=== PATIENT | female | born 1995 | race Caucasian/White ===

== ENCOUNTER 2019-01-01 11:16 | Emergency (ER) | payer MEDICAID ==
[2019-01-01 11:44] LABS: #Basophils 0.1 thou/uL (0.0-0.2); #Eosinphils 0.1 thou/uL (0.0-0.7); #Lymphocytes 2.5 thou/uL (1.20-3.40); #Monocytes 0.7 thou/uL (0.11-0.59); #Neutrophils 7.6 thou/uL (1.40-6.50); %Basophils 0.5 % (0.0-1.0); %Eosinophils 0.7 % (0.0-10.0); %Lymphocytes 22.6 % (21.0-51.0); %Monocytes 6.6 % (0.0-10.0); %Neutrophils 69.5 % (42.0-75.0); Hemoglobin 14.1 g/dL (12.0-16.0); Mean Corpuscular HGB CONC 33.8 g/dL (32.0-36.0); Mean Corpuscular Hemoglobin 29.9 pg (27.0-31.0); Mean Corpuscular Volume 88.6 fL (78.0-98.0); Platelet Count 254 thou/uL (130-400); RBC Distribution Width 12.7 % (11.5-14.5); Red Blood Cell (RBC) Count 4.72 mill/uL (4.20-5.40); White Blood Cell (WBC) Count 10.9 thou/uL (4.8-10.8)
[2019-01-01 12:05] LABS: Pregnancy Test - Urine (BHCG) Negative (Negative); Pregu Control Background? CLEAR/WHITE (CLR/WHITE); Pregu Control Bar Appear? YES (CONTROL BAR); Specific Gravity 1.021 (1.002-1.036)
[2019-01-01 12:14] LABS: ALT (SGPT) 21 U/L (8-55); AST (SGOT) 12 U/L (5-34); Albumin 4.2 g/dL (3.5-5.0); Alkaline Phosphatase 103 U/L (40-150); Anion Gap 15 mmol/L (10-20); BUN (Urea Nitrogen) 8 mg/dL (7.0-18.7); Bilirubin, Total 0.3 mg/dL (0.2-1.2); Calc. Creatinine Clearance 0 mL/min (70-130); Calcium 9.3 mg/dL (7.8-10.44); Carbon Dioxide 22 mmol/L (22-29); Chloride 105 mmol/L (98-107); Estimated GFR-MDRD Greater than 90; Globulin 2.6 g/dL (2.4-3.5); Glucose 96 mg/dL (70-105); Lipase 13 U/L (8-78); Protein, Total 6.8 g/dL (6.0-8.3); Sodium 138 mmol/L (136-145)
[2019-01-01 12:28] LABS: Bilirubin Negative (Negative); Blood, Urine Negative (Negative); Clarity CLOUDY (Clear); Glucose, Urine (Dipstick) Negative (Negative); Leukocyte Negative (Negative); Nitrite Negative (Negative); Protein, Urine (Dipstick) Negative (Neg-Trace); Specific Gravity, Urine 1.022 (1.002-1.036)
[2019-01-01] MEDS ORDERED: Ketorolac Tromethamine 30 MG/ML VIAL ONE (13:01)
--- NOTE | 2019-01-01 13:56 | CT ---
CT ABDOMEN AND PELVIS WITHOUT CONTRAST: HISTORY: Abdominal pain, nausea and vomiting. FINDINGS: Absence of oral and IV contrast reduces the sensitivity of the exam, particularly for evaluation of s olid organs involved. The lung bases are clear. No free air or free fluid is seen in the abdomen or pelvis. No calcified gallstones are seen. No calculi are noted in the kidneys, ureters, or the urinary bladder. No hydro ureteral nephrosis is identified on either side. A normal-appearing appendix is noted. Uterus and o varies are present. No acute osseous abnormalities are identified. IMPRESSION: No CT evidence of urinary tract calculi/obstruction or appendicitis. POS: [facility]
== END 2019-01-01 14:36 | disposition home or self-care (01) ==
LOC: ERS 11:16
DX: R10.30 Lower abdominal pain, unspecified (principal); R10.811 Right upper quadrant abdominal tenderness; F41.9 Anxiety disorder, unspecified; F17.210 Nicotine dependence, cigarettes, uncomplicated; Z79.899 Other long term (current) drug therapy
CPT/HCPCS: 36415; 74176; 80053; 81003; 81025; 83690; 85025; 96361; 96374; J1885

== ENCOUNTER 2019-02-19 13:27 | Emergency (ER) | payer OTHER ==
[2019-02-19 13:53] LABS: Bilirubin Negative (Negative); Blood, Urine Negative (Negative); Clarity Clear (Clear); Glucose, Urine (Dipstick) Normal (Negative); Leukocyte Negative Leu/uL (Negative); Nitrite Negative (Negative); Protein, Urine (Dipstick) 10 mg/dL (Neg-Trace); Urobilinogen Normal mg/dL (Less than 2)
[2019-02-19 13:55] LABS: Pregnancy Test - Urine (BHCG) Negative (Negative); Pregu Control Background? CLEAR/WHITE (CLR/WHITE); Pregu Control Bar Appear? YES (CONTROL BAR); Specific Gravity 1.025 (1.002-1.036)
[2019-02-19 14:03] LABS: #Eosinphils 0.2 thou/uL (0.0-0.7); #Lymphocytes 2.1 thou/uL (1.20-3.40); #Monocytes 0.6 thou/uL (0.11-0.59); #Neutrophils 6.1 thou/uL (1.40-6.50); %Basophils 0.5 % (0.0-1.0); %Eosinophils 1.8 % (0.0-10.0); %Lymphocytes 23.1 % (21.0-51.0); %Neutrophils 67.6 % (42.0-75.0); Hemoglobin 13.8 g/dL (12.0-16.0); Mean Corpuscular Hemoglobin 30.1 pg (27.0-31.0); Mean Corpuscular Volume 88.7 fL (78.0-98.0); Platelet Count 228 thou/uL (130-400); RBC Distribution Width 12.5 % (11.5-14.5); Red Blood Cell (RBC) Count 4.58 mill/uL (4.20-5.40)
[2019-02-19 14:25] LABS: ALT (SGPT) 31 U/L (8-55); AST (SGOT) 17 U/L (5-34); Albumin 3.9 g/dL (3.5-5.0); Alkaline Phosphatase 90 U/L (40-150); Anion Gap 11 mmol/L (10-20); BUN (Urea Nitrogen) 9 mg/dL (7.0-18.7); Bilirubin, Total 0.4 mg/dL (0.2-1.2); Calc. Creatinine Clearance 0 mL/min (70-130); Calcium 9.6 mg/dL (7.8-10.44); Carbon Dioxide 24 mmol/L (22-29); Chloride 105 mmol/L (98-107); Estimated GFR-MDRD Greater than 90; Globulin 2.9 g/dL (2.4-3.5); Glucose 128 mg/dL (70-105); Lipase 10 U/L (8-78); Potassium 3.7 mmol/L (3.5-5.1); Protein, Total 6.8 g/dL (6.0-8.3); Sodium 136 mmol/L (136-145)
[2019-02-19] MEDS ORDERED: Acetaminophen 500 MG TAB ONE (14:39)
== END 2019-02-19 15:20 | disposition home or self-care (01) ==
LOC: ERS 13:27
DX: R10.9 Unspecified abdominal pain (principal); R11.2 Nausea with vomiting, unspecified; N93.9 Abnormal uterine and vaginal bleeding, unspecified; J02.9 Acute pharyngitis, unspecified; F41.0 Panic disorder [episodic paroxysmal anxiety]; F17.210 Nicotine dependence, cigarettes, uncomplicated; Z79.899 Other long term (current) drug therapy
CPT/HCPCS: 36415; 80053; 81003; 81025; 83690; 84702; 85025; 86900; 86901; 99284

== ENCOUNTER 2019-03-01 21:08 | Emergency (ER) | payer OTHER ==
[2019-03-01 22:07] LABS: BHCG - Serum Negative (NEGATIVE); Pregs Control Background? CLEAR/WHITE (CLR/WHITE); Pregs Control Bar Appear? YES (CONTROL BAR)
--- NOTE | 2019-03-01 22:13 | RAD ---
XR Knee Rt 4 View STANDARD HISTORY: Knee injury COMPARISON: None. FINDINGS: There are no signs of fracture, dislocation or joint effusion. IMPRESSION: No evidence of fracture.
[2019-03-01] MEDS ORDERED: Acetaminophen 500 MG TAB ONE (22:24)
== END 2019-03-01 22:42 | disposition home or self-care (01) ==
LOC: ERS 21:08
DX: S81.811A Laceration without foreign body, right lower leg, initial encounter (principal); M54.5 Low back pain; F41.0 Panic disorder [episodic paroxysmal anxiety]; Z79.899 Other long term (current) drug therapy; W19.XXXA Unspecified fall, initial encounter
CPT/HCPCS: 36415; 84703

== ENCOUNTER 2019-03-07 21:51 | Emergency (ER) | payer OTHER ==
[2019-03-07 22:36] LABS: #Eosinphils 0.1 thou/uL (0.0-0.7); #Lymphocytes 2.7 thou/uL (1.20-3.40); #Monocytes 0.9 thou/uL (0.11-0.59); #Neutrophils 6.4 thou/uL (1.40-6.50); %Basophils 0.2 % (0.0-1.0); %Eosinophils 0.8 % (0.0-10.0); %Lymphocytes 26.8 % (21.0-51.0); %Neutrophils 63.2 % (42.0-75.0); Hemoglobin 13.7 g/dL (12.0-16.0); Mean Corpuscular HGB CONC 34.5 g/dL (32.0-36.0); Mean Corpuscular Hemoglobin 30.8 pg (27.0-31.0); Mean Corpuscular Volume 89.3 fL (78.0-98.0); Platelet Count 260 thou/uL (130-400); RBC Distribution Width 12.1 % (11.5-14.5); Red Blood Cell (RBC) Count 4.43 mill/uL (4.20-5.40); White Blood Cell (WBC) Count 10.1 thou/uL (4.8-10.8)
[2019-03-07 22:46] LABS: BHCG - Serum Negative (NEGATIVE); Pregs Control Background? CLEAR/WHITE (CLR/WHITE); Pregs Control Bar Appear? YES (CONTROL BAR)
[2019-03-07 22:59] LABS: ALT (SGPT) 30 U/L (8-55); AST (SGOT) 16 U/L (5-34); Albumin 4.2 g/dL (3.5-5.0); Alkaline Phosphatase 104 U/L (40-150); Anion Gap 13 mmol/L (10-20); BUN (Urea Nitrogen) 8 mg/dL (7.0-18.7); Bilirubin, Total 0.2 mg/dL (0.2-1.2); Calc. Creatinine Clearance 0 mL/min (70-130); Calcium 9.3 mg/dL (7.8-10.44); Carbon Dioxide 22 mmol/L (22-29); Chloride 106 mmol/L (98-107); Estimated GFR-MDRD Greater than 90; Glucose 98 mg/dL (70-105); Lipase 14 U/L (8-78); Potassium 4.2 mmol/L (3.5-5.1); Protein, Total 7.2 g/dL (6.0-8.3); Sodium 137 mmol/L (136-145)
== END 2019-03-07 23:44 | disposition left against medical advice (07) ==
LOC: ERS 21:51
DX: Z53.21 Procedure and treatment not carried out due to patient leaving prior to being seen by health care provider (principal)
CPT/HCPCS: 36415; 80053; 83605; 83690; 84703; 85025

== ENCOUNTER 2019-03-28 19:53 | Emergency (ER) | payer OTHER | END 2019-03-28 20:41 | disposition left against medical advice (07) | LOC: ERS 19:53 | DX: Z53.21 Procedure and treatment not carried out due to patient leaving prior to being seen by health care provider (principal) ==

== ENCOUNTER 2019-08-05 09:58 | Outpatient (CLI) | payer OTHER ==
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
== END 2019-08-05 09:59 | disposition home or self-care (01) ==
LOC: TBSIIMAG 09:58
PROVIDERS: ATTEND Family Medicine
DX: S32.009K Unspecified fracture of unspecified lumbar vertebra, subsequent encounter for fracture with nonunion (principal); M48.07 Spinal stenosis, lumbosacral region
CPT/HCPCS: 72148

== ENCOUNTER 2019-09-07 04:08 | Emergency (ER) | payer OTHER ==
[2019-09-07] MEDS ORDERED: Ondansetron PF 4 MG/2 ML Vial ONE (04:19)
[2019-09-07 04:29] LABS: Bilirubin Negative (Negative); Blood, Urine Negative (Negative); Clarity Clear (Clear); Glucose, Urine (Dipstick) Normal (Negative); Leukocyte Negative Leu/uL (Negative); Nitrite Negative (Negative); Protein, Urine (Dipstick) Negative (Neg-Trace); Urobilinogen Normal mg/dL (Less than 2)
[2019-09-07 04:31] LABS: Pregnancy Test - Urine (BHCG) Negative (Negative); Pregu Control Background? CLEAR/WHITE (CLR/WHITE); Pregu Control Bar Appear? YES (CONTROL BAR); Specific Gravity 1.018 (1.002-1.036)
[2019-09-07] MEDS ORDERED: Metoclopramide HCl 10 MG/2 ML VIAL ONE (04:35)
[2019-09-07] MEDS ORDERED: diphenhydrAMINE 50 MG/ML VIAL ONE (04:35)
[2019-09-07] MEDS ORDERED: Acetaminophen 500 MG TAB ONE (04:35)
[2019-09-07 04:45] LABS: #Basophils 0.1 thou/uL (0.0-0.2); #Eosinphils 0.1 thou/uL (0.0-0.7); #Lymphocytes 3.8 thou/uL (1.20-3.40); #Monocytes 0.9 thou/uL (0.11-0.59); #Neutrophils 6.8 thou/uL (1.40-6.50); %Basophils 0.7 % (0.0-1.0); %Eosinophils 1.1 % (0.0-10.0); %Lymphocytes 32.6 % (21.0-51.0); %Monocytes 7.7 % (0.0-10.0); %Neutrophils 57.9 % (42.0-75.0); Hemoglobin 13.6 g/dL (12.0-16.0); Mean Corpuscular HGB CONC 34.1 g/dL (32.0-36.0); Mean Corpuscular Hemoglobin 29.9 pg (27.0-31.0); Mean Corpuscular Volume 87.8 fL (78.0-98.0); Mean Platelet Volume 7.2 fL (7.4-10.4); Platelet Count 257 thou/uL (130-400); RBC Distribution Width 12.3 % (11.5-14.5); Red Blood Cell (RBC) Count 4.53 mill/uL (4.20-5.40); White Blood Cell (WBC) Count 11.7 thou/uL (4.8-10.8)
[2019-09-07 05:05] LABS: ALT (SGPT) 22 U/L (8-55); AST (SGOT) 12 U/L (5-34); Albumin 4.2 g/dL (3.5-5.0); Alkaline Phosphatase 106 U/L (40-110); Anion Gap 11 mmol/L (10-20); BUN (Urea Nitrogen) 12 mg/dL (7.0-18.7); Bilirubin, Total 0.3 mg/dL (0.2-1.2); Calc. Creatinine Clearance 0 mL/min (70-130); Calcium 9.1 mg/dL (7.8-10.44); Carbon Dioxide 27 mmol/L (22-29); Chloride 105 mmol/L (98-107); Estimated GFR-MDRD Greater than 90; Globulin 3.1 g/dL (2.4-3.5); Glucose 103 mg/dL (70-105); Lipase 15 U/L (8-78); Potassium 4.1 mmol/L (3.5-5.1); Protein, Total 7.3 g/dL (6.0-8.3); Sodium 139 mmol/L (136-145)
== END 2019-09-07 05:26 | disposition home or self-care (01) ==
LOC: ERS 04:08
DX: R11.2 Nausea with vomiting, unspecified (principal); E66.9 Obesity, unspecified
CPT/HCPCS: 80053; 81003; 81025; 83690; 85025; 96361; 96374; 96375; J1200; J2405; J2765

== ENCOUNTER 2020-02-15 00:54 | Emergency (ER) | payer OTHER, SELFPAY | END 2020-02-15 01:15 | disposition short-term general hospital (02) | LOC: ERS 00:54 | DX: O21.9 Vomiting of pregnancy, unspecified (principal); O99.352 Diseases of the nervous system complicating pregnancy, second trimester; G40.909 Epilepsy, unspecified, not intractable, without status epilepticus; Z79.899 Other long term (current) drug therapy; Z3A.20 20 weeks gestation of pregnancy | CPT/HCPCS: 99284 ==

== ENCOUNTER 2020-02-15 01:33 | Day surgery (SDC) | payer OTHER ==
[2020-02-15 01:55] VITALS: BP 144/73; TEMP 98.7; BMI 41.8
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
== END 2020-02-15 02:35 | disposition home or self-care (01) ==
LOC: L&D/OP 01:33
PROVIDERS: ATTEND Student in an Organized Health Care Education/Training Program
DX: O46.93 Antepartum hemorrhage, unspecified, third trimester (principal); O99.89 Other specified diseases and conditions complicating pregnancy, childbirth and the puerperium; R56.9 Unspecified convulsions; O30.102 Triplet pregnancy, unspecified number of placenta and unspecified number of amniotic sacs, second trimester; O09.292 Supervision of pregnancy with other poor reproductive or obstetric history, second trimester; Z3A.20 20 weeks gestation of pregnancy; Z79.899 Other long term (current) drug therapy; Z88.8 Allergy status to other drugs, medicaments and biological substances; V40.5XXA Car driver injured in collision with pedestrian or animal in traffic accident, initial encounter
CPT/HCPCS: 76815; 99281

== ENCOUNTER 2020-05-21 12:26 | Outpatient (CLI) | payer OTHER ==
--- NOTE | 2020-05-21 14:00 | RAD ---
LUMBAR SPINE SERIES 3 VIEWS WITH FLEXION AND EXTENSION: Date: 05/21/2020 HISTORY: Back pain. FINDINGS: Vertebral bodies maintain normal height. Disc spaces are well preserved. No abnormal motion on the fl exion or extension views. No spondylolisthesis. IMPRESSION: Unremarkable lumbar spine series. POS: [facility]
== END 2020-05-21 12:27 | disposition home or self-care (01) ==
LOC: TBSIIMAG 12:26
PROVIDERS: ATTEND Nurse Practitioner Family
DX: M47.816 Spondylosis without myelopathy or radiculopathy, lumbar region (principal)
CPT/HCPCS: 72100

== ENCOUNTER 2020-05-31 07:58 | Outpatient (CLI) | payer OTHER ==
[2020-05-31 22:58] LABS: SARS-CoV-2 MS2 Positive; SARS-CoV-2 N Gene Negative; SARS-CoV-2 S Gene Negative; SARS-CoV-2 by NAA Not Detected (NotDetected); SARS-CoV-2 orf1ab Negative
== END 2020-05-31 07:59 | disposition home or self-care (01) ==
LOC: LABBT 07:58
PROVIDERS: ATTEND Psychiatry & Neurology Neurology
DX: Z01.812 Encounter for preprocedural laboratory examination (principal); S32.009K Unspecified fracture of unspecified lumbar vertebra, subsequent encounter for fracture with nonunion; Z20.828 Contact with and (suspected) exposure to other viral communicable diseases
CPT/HCPCS: 87635; U0003

== ENCOUNTER 2020-06-02 20:36 | Emergency (ER) | payer OTHER ==
--- NOTE | 2020-06-02 21:52 | CT ---
EXAM: CT brain without contrast HISTORY: Seizure. History of brain mass COMPARISON: None TECHNIQUE: Multiple contiguous axial images were obtained and a CT of the brain without contrast. FINDINGS: The brain is normal in morphology and attenuation without focal lesions or confluent areas of infarction. There is no evidence of hydrocephalus, intracranial hemorrhage, or extra-axial fluid collection. No obvious mass is seen on this limited noncontrast examination. The calvarium and overlying soft tissues are unremarkable. The visualized paranasal sinuses and masto id air cells are well aerated. IMPRESSION: No evidence of acute intracranial abnormality. No obvious brain mass visualized on this l imited noncontrast examination. If concern about a brain mass, then an MRI of the brain without and with contrast should be performed.
[2020-06-02 21:54] LABS: Pregnancy Test - Urine (BHCG) Negative (Negative); Pregu Control Background? CLEAR/WHITE (CLR/WHITE); Pregu Control Bar Appear? YES (CONTROL BAR); Specific Gravity 1.029 (1.002-1.036)
[2020-06-02] MEDS ORDERED: levETIRAcetam 500 MG TAB PO SCH (22:15)
== END 2020-06-02 23:30 | disposition home or self-care (01) ==
LOC: ERS 20:36
DX: G40.909 Epilepsy, unspecified, not intractable, without status epilepticus (principal); F31.9 Bipolar disorder, unspecified; F20.9 Schizophrenia, unspecified; Z79.899 Other long term (current) drug therapy; Z85.841 Personal history of malignant neoplasm of brain
CPT/HCPCS: 36416; 70450; 81025; 93005

== ENCOUNTER 2020-06-04 12:04 | Day surgery (SDC) | payer OTHER ==
[2020-06-01 10:11] VITALS: BMI 37.1
== END 2020-06-04 12:20 | disposition home or self-care (01) ==
LOC: SDC/OP 12:04
PROVIDERS: ATTEND Psychiatry & Neurology Neurology
DX: G40.209 Localization-related (focal) (partial) symptomatic epilepsy and epileptic syndromes with complex partial seizures, not intractable, without status epilepticus (principal); S32.009K Unspecified fracture of unspecified lumbar vertebra, subsequent encounter for fracture with nonunion; Z79.899 Other long term (current) drug therapy; Z88.4 Allergy status to anesthetic agent; Z88.8 Allergy status to other drugs, medicaments and biological substances; Z91.013 Allergy to seafood

== ENCOUNTER 2020-07-06 22:05 | Emergency (ER) | payer OTHER ==
[2020-07-06 22:55] LABS: Pregnancy Test - Urine (BHCG) POSITIVE (Negative); Pregu Control Background? CLEAR/WHITE (CLR/WHITE); Pregu Control Bar Appear? YES (CONTROL BAR); Specific Gravity 1.021 (1.002-1.036)
[2020-07-06 22:56] LABS: Bilirubin Negative (Negative); Blood, Urine 2+ (Negative); Clarity Turbid (Clear); Glucose, Urine (Dipstick) Normal (Negative); Ketone, Urine Negative (Negative); Leukocyte 75 Leu/uL (Negative); Nitrite Negative (Negative); Protein, Urine (Dipstick) Negative (Neg-Trace); RBC/HPF 0-3 HPF (0-3); Specific Gravity, Urine 1.021 (1.002-1.036); Urobilinogen Normal mg/dL (Less than 2); WBC/HPF 0-3 HPF (0-3)
[2020-07-06 22:57] LABS: Bacteria/HPF Rare-Few HPF (None Seen)
[2020-07-06] MEDS ORDERED: Morphine 4 MG/ML VIAL ONE (23:18)
[2020-07-06 23:29] LABS: #Basophils 0.1 thou/uL (0.0-0.2); #Eosinphils 0.1 thou/uL (0.0-0.7); #Lymphocytes 2.8 thou/uL (1.20-3.40); #Monocytes 0.8 thou/uL (0.11-0.59); #Neutrophils 6.1 thou/uL (1.40-6.50); %Basophils 0.5 % (0.0-1.0); %Lymphocytes 28.7 % (21.0-51.0); %Neutrophils 61.9 % (42.0-75.0); Hemoglobin 13.2 g/dL (12.0-16.0); Mean Corpuscular HGB CONC 33.7 g/dL (32.0-36.0); Mean Corpuscular Hemoglobin 30.4 pg (27.0-31.0); Mean Corpuscular Volume 90.4 fL (78.0-98.0); Mean Platelet Volume 7.5 fL (7.4-10.4); Platelet Count 215 thou/uL (130-400); RBC Distribution Width 12.6 % (11.5-14.5); Red Blood Cell (RBC) Count 4.33 mill/uL (4.20-5.40); White Blood Cell (WBC) Count 9.8 thou/uL (4.8-10.8)
[2020-07-06 23:52] LABS: ALT (SGPT) 68 U/L (8-55); AST (SGOT) 32 U/L (5-34); Albumin 4.1 g/dL (3.5-5.0); Alkaline Phosphatase 83 U/L (40-110); Anion Gap 15 mmol/L (10-20); BUN (Urea Nitrogen) 10 mg/dL (7.0-18.7); Bilirubin, Total 0.2 mg/dL (0.2-1.2); Calc. Creatinine Clearance 0 mL/min (70-130); Carbon Dioxide 25 mmol/L (22-29); Chloride 103 mmol/L (98-107); Globulin 3.1 g/dL (2.4-3.5); Glucose 99 mg/dL (70-105); Lipase 21 U/L (8-78); Potassium 3.9 mmol/L (3.5-5.1); Protein, Total 7.2 g/dL (6.0-8.3); Sodium 139 mmol/L (136-145)
--- NOTE | 2020-07-07 00:17 | ULT ---
Exam: Pelvic ultrasound HISTORY: Pelvic pain and spotting. Quantitative beta hCG level of 217. COMPARISON: None TECHNIQUE: Multiple grayscale and color Doppler images were obtained in a transabdominal and transvag inal pelvic ultrasound. Spectral analysis of the Doppler waveforms of the ovaries were performed. FINDINGS: CERVIX: Unremarkable UTERUS: Normal in size without focal abnormality. ENDOMETRIAL STRIPE: 6 mm which is within normal limits for a normal menstruating female patient. No f luid or fluid collection is seen in the endometrial canal. No free fluid is present. RIGHT OVARY: Normal flow, without focal mass. LEFT OVARY: Normal flow, without focal mass. IMPRESSION: Normal-appearing uterus and bilateral ovaries. No fluid collection is seen in the endometrial canal t o suggest an intrauterine gestation. Ectopic cannot be excluded based on sonographic evaluation.
[2020-07-07] MEDS ORDERED: Morphine 4 MG/ML VIAL ONE (01:21)
== END 2020-07-07 01:27 | disposition home or self-care (01) ==
LOC: ERS 22:05
DX: O20.0 Threatened abortion (principal); Z3A.01 Less than 8 weeks gestation of pregnancy
CPT/HCPCS: 36415; 76856; 80053; 81003; 81015; 81025; 83690; 84702; 85025; 86900; 86901; 87086; 96374; 96376; J2270

== ENCOUNTER 2020-10-31 12:39 | Outpatient (CLI) | payer OTHER | END 2020-10-31 12:40 | disposition home or self-care (01) | LOC: BICRAD 12:39 | PROVIDERS: ATTEND Nurse Practitioner Family | DX: M54.6 Pain in thoracic spine (principal); M47.816 Spondylosis without myelopathy or radiculopathy, lumbar region | CPT/HCPCS: 72070; 72110 ==

== ENCOUNTER 2021-05-03 09:32 | Day surgery (SDC) | payer OTHER ==
[2021-05-02 12:47] VITALS: BMI 37.1
[2021-05-03] MEDS ORDERED: Magnevist 469MG/ML 20 ML VIAL ONE (09:51)
[2021-05-03 10:42] LABS: Pregnancy Test - Urine (BHCG) Negative (Negative); Pregu Control Background? CLEAR/WHITE (CLR/WHITE); Pregu Control Bar Appear? YES (CONTROL BAR); Specific Gravity 1.017 (1.002-1.036)
[2021-05-03] MEDS ORDERED: Fentanyl 100 MCG/2 ML VIAL ONE (12:04)
[2021-05-03] MEDS ORDERED: Midazolam HCl 2 mg/2 ml Vial ONE (12:05)
[2021-05-03] MEDS ORDERED: PROPOFOL 200 MG/20 ML VIAL ONE (12:15)
[2021-05-03] MEDS ORDERED: Ondansetron PF 4 MG/2 ML Vial ONE ×2 (12:15→13:22)
[2021-05-03] MEDS ORDERED: Lidocaine 1% PF 5 ML VIAL ONE (12:15)
[2021-05-03] MEDS ORDERED: Promethazine HCl 25 MG/ML VIAL ONE (13:22)
[2021-05-03] MEDS ORDERED: HYDROcodone/Acetaminophen 5/325 mg Tablet ONE (14:06)
== END 2021-05-03 14:30 | disposition home or self-care (01) ==
LOC: MRI 09:32
PROVIDERS: ATTEND Psychiatry & Neurology Neurology
DX: G40.209 Localization-related (focal) (partial) symptomatic epilepsy and epileptic syndromes with complex partial seizures, not intractable, without status epilepticus (principal); G43.701 Chronic migraine without aura, not intractable, with status migrainosus; E78.00 Pure hypercholesterolemia, unspecified; Z88.8 Allergy status to other drugs, medicaments and biological substances; Z91.013 Allergy to seafood
CPT/HCPCS: 70553; 81025; J2250; J2405; J2550; J3010

== ENCOUNTER 2021-06-09 13:42 | Emergency (ER) | payer OTHER ==
[2021-06-09 14:38] LABS: Bacteria/HPF 1+ HPF (None Seen); Bilirubin Negative (Negative); Blood, Urine Negative (Negative); Clarity Clear (Clear); Glucose, Urine (Dipstick) Normal (Negative); Ketone, Urine Negative (Negative); Leukocyte 250 Leu/uL (Negative); Nitrite Negative (Negative); Protein, Urine (Dipstick) Negative (Neg-Trace); RBC/HPF 0-3 HPF (0-3); Specific Gravity, Urine 1.013 (1.002-1.036); Urobilinogen Normal mg/dL (Less than 2); pH, Urine 7.5 (5.0-9.0)
[2021-06-09 14:40] LABS: Pregnancy Test - Urine (BHCG) Negative (Negative); Pregu Control Background? CLEAR/WHITE (CLR/WHITE); Pregu Control Bar Appear? YES (CONTROL BAR); Specific Gravity 1.013 (1.002-1.036)
[2021-06-09] MEDS ORDERED: Ketorolac Tromethamine 30 MG/ML VIAL ONE (14:49)
[2021-06-09] MEDS ORDERED: Ondansetron PF 4 MG/2 ML Vial ONE (14:49)
[2021-06-09 15:06] LABS: #Basophils 0.1 thou/uL (0.0-0.2); #Eosinphils 0.1 thou/uL (0.0-0.7); #Lymphocytes 2.4 thou/uL (1.20-3.40); #Monocytes 0.9 thou/uL (0.11-0.59); #Neutrophils 8.2 thou/uL (1.40-6.50); %Basophils 0.4 % (0.0-1.0); %Lymphocytes 20.5 % (21.0-51.0); %Monocytes 7.5 % (0.0-10.0); %Neutrophils 70.6 % (42.0-75.0); Mean Corpuscular HGB CONC 33.8 g/dL (32.0-36.0); Mean Corpuscular Hemoglobin 29.6 pg (27.0-31.0); Mean Corpuscular Volume 87.6 fL (78.0-98.0); Mean Platelet Volume 6.8 fL (7.4-10.4); Platelet Count 278 thou/uL (130-400); RBC Distribution Width 12.7 % (11.5-14.5); Red Blood Cell (RBC) Count 4.71 mill/uL (4.20-5.40); White Blood Cell (WBC) Count 11.5 thou/uL (4.8-10.8)
[2021-06-09 15:29] LABS: ALT (SGPT) 32 U/L (8-55); AST (SGOT) 18 U/L (5-34); Albumin 3.8 g/dL (3.5-5.0); Alkaline Phosphatase 88 U/L (40-110); Anion Gap 12 mmol/L (10-20); BUN (Urea Nitrogen) 8 mg/dL (7.0-18.7); Bilirubin, Total 0.4 mg/dL (0.2-1.2); Calc. Creatinine Clearance 0 mL/min (70-130); Calcium 9.4 mg/dL (7.8-10.44); Carbon Dioxide 24 mmol/L (22-29); Chloride 104 mmol/L (98-107); Globulin 3.3 g/dL (2.4-3.5); Glucose 89 mg/dL (70-105); Lipase 12 U/L (8-78); Potassium 4.3 mmol/L (3.5-5.1); Protein, Total 7.1 g/dL (6.0-8.3); Sodium 136 mmol/L (136-145)
[2021-06-09] MEDS ORDERED: Acetaminophen 500 MG TAB ONE (16:15)
== END 2021-06-09 17:00 | disposition home or self-care (01) ==
LOC: ERS 13:42
DX: N12 Tubulo-interstitial nephritis, not specified as acute or chronic (principal); G40.909 Epilepsy, unspecified, not intractable, without status epilepticus; Z79.899 Other long term (current) drug therapy
CPT/HCPCS: 36415; 74176; 80053; 81003; 81015; 81025; 83690; 85025; 96374; 96375; J1885; J2405

== ENCOUNTER 2022-05-19 11:08 | Day surgery (SDC) | payer OTHER ==
[2022-05-16 09:42] VITALS: BMI 36.9
== END 2022-05-19 14:01 | disposition home or self-care (01) ==
LOC: MRI 11:08
PROVIDERS: ATTEND Neurological Surgery
DX: M54.41 Lumbago with sciatica, right side (principal); M54.42 Lumbago with sciatica, left side; G40.209 Localization-related (focal) (partial) symptomatic epilepsy and epileptic syndromes with complex partial seizures, not intractable, without status epilepticus; R32 Unspecified urinary incontinence; M62.89 Other specified disorders of muscle; E78.00 Pure hypercholesterolemia, unspecified; Z53.8 Procedure and treatment not carried out for other reasons; Z79.899 Other long term (current) drug therapy; Z88.4 Allergy status to anesthetic agent; Z88.8 Allergy status to other drugs, medicaments and biological substances; Z91.013 Allergy to seafood; Z91.018 Allergy to other foods; Z91.041 Radiographic dye allergy status

== ENCOUNTER 2023-10-02 12:47 | Outpatient (CLI) | payer OTHER | END 2023-10-02 12:48 | disposition home or self-care (01) | LOC: EEG 12:47 | PROVIDERS: ATTEND Psychiatry & Neurology Neurology | DX: R56.9 Unspecified convulsions (principal); F43.10 Post-traumatic stress disorder, unspecified | CPT/HCPCS: 36415; 80048; 80175; 80177; 84703; 85025; 95816 ==